=== PATIENT | male | born 1950 | race Caucasian/White ===

== ENCOUNTER 2017-02-08 08:49 | Inpatient (IN) | payer MEDICARE, OTHER ==
[2017-01-28 12:58] LABS: BASOPHILS 0.3 %; BASOPHILS ABSOLUTE 0.03 10/3/uL (0.0-0.16); EOSINOPHILS 1.1 %; EOSINOPHILS ABSOLUTE 0.12 10/3/uL (0.0-0.53); HEMATOCRIT 45.8 % (40.0-51.0); IMMATURE GRANULOCYTES 1.1 %; IMMATURE GRANULOCYTES ABSOLUTE 0.12 10/3/uL (0.0-0.11); LYMPHOCYTES 22.1 %; LYMPHOCYTES ABSOLUTE 2.38 10/3/uL (0.67-4.30); MEAN CORPUS HGB CONC 34.9 g/dL (32.0-36.0); MEAN CORPUSCULAR HEMOGLOB 32.5 pg (26.0-34.0); MEAN CORPUSCULAR VOLUME 93.1 fL (80-100); MEAN PLATELET VOLUME 10.2 fL (9.2-13.0); MONOCYTES 7.1 %; MONOCYTES ABSOLUTE 0.76 10/3/uL (0.21-1.20); NEUTROPHILS 68.3 %; NEUTROPHILS ABSOLUTE 7.34 10/3/uL (2.02-8.40); PLATELET COUNT 177 10/3/uL (150-400); RBC DISTRIBUTION WIDTH 13.5 % (12.0-16.0); RED CELL COUNT 4.92 10/6/uL (4.7-6.1); WHITE BLOOD CELLS 10.8 10/3/uL (4.5-10.5)
[2017-01-28 12:59] LABS: MANUAL DIFF NO %
[2017-01-28 13:04] LABS: PROTIME (NOT ORD) 13.3 SEC (12.0-14.5)
[2017-01-28 13:10] LABS: ALBUMIN 3.6 G/DL (3.5-5.0); ALKALINE PHOSPHATASE 94 U/L (45-117); CALCIUM, SERUM 9.4 MG/DL (8.5-10.4); CHLORIDE, SERUM 105 MMOL/L (96-112); CREATININE 1.08 MG/DL (0.70-1.30); GFR AFRICAN AMERICAN 81 ML/MIN (>=60); GFR NON AFRICAN AMERICAN 70 ML/MIN (>=60); GLOBULIN 3.6 G/DL (2.5-4.1); GLUCOSE, SERUM 102 MG/DL (60-99); POTASSIUM, SERUM 4.3 MMOL/L (3.5-5.3); SGOT(AST) 38 U/L (5-40); SGPT(ALT) 56 U/L (5-65); SODIUM, SERUM 143 MMOL/L (135-148); TOTAL BILIRUBIN 0.4 MG/DL (0-1.2); TOTAL PROTEIN 7.2 G/DL (6.0-8.5)
[2017-01-28 13:11] LABS: BUN (BLOOD UREA NITROGEN) 14 MG/DL (6-23); CO2 (CARBON DIOXIDE) 29 MMOL/L (24-34)
[2017-01-28 13:16] LABS: ASCORBIC ACID (UR NOT ORDER) NEG (NEG); BILIRUBIN, URINE NEGATIVE (NEG); KETONE, URINE NEGATIVE (NEG); LEUKOCYTE ESTERASE(NOT OR NEG (NEG); WBC (NOT ORDERED) (RFLEX) 2 (0-5)
[2017-01-28 13:17] LABS: B NATRIURETIC PEPTIDE (BNP) 42.8 PG/ML (< 100.0)
--- NOTE | ~2017-02-08 | OP ---
Record Of Operation [facility] [address] [place]. [address] NAME: JUAN FOSTER : 46 STATUS : ADM IN PAT#: [id number] AGE: 66 ADM/REG DATE : 02/08/17 MR#: [id number] REPORT SERV DATE: 02/08/17 DICTATED BY: PENG JOHN DATE: 02/08/17 REPORT STATUS : Draft TRANSCRIBED BY: DOC DATE: 02/08/17 DATE OF PROCEDURE: 02/08/2017 TAVR NOTE PROCEDURE: Right transfemoral transcatheter aortic valve replacement, implantation using 26 mm Thacker S3 valve. INDICATION FOR THE PROCEDURE: Mr. Juan Foster is a 66-year-old gentleman with severe aortic stenosis. He had bypass surgery in 2000. He has history of hypertension, hyperlipidemia, prior back surgery. His echocardiogram demonstrated hnxypncx-rf-[id number] low-gradient aortic stenosis with a valve area 0.8, peak gradient 40, mean gradient 20. Cardiac catheterization by Dr. Harris demonstrated a mean gradient 31, aortic valve area 1.2. His predicted mortality by the STS score was 2.8%, predicted morbidity mortality 20.3%, predicted mortality by the euro score is 4.6%. Both Dr. Ramírez and Dr. De Souza felt that he was a poor candidate for surgical aortic valve replacement. The entire [facility] valve team felt he was a better candidate for transcatheter aortic valve replacement. POSTOPERATIVE DIAGNOSES: Successful implantation of the Thacker 26 mm S3 valve via the right transfemoral approach. OPERATORS: Dr. De Souza, Dr. John, Dr. Harris, Dr. Ramírez, and Dr. Holt. OPERATIVE TECHNIQUE: The patient was prepped and draped in the usual sterile fashion. He received propofol anesthesia. He was not intubated. He did not have a Gray catheter. He did have a radial A-line as well as a right heart catheter via IJ approach. The patient was prepped and draped in the usual sterile fashion. The right and left groins were anesthetized with lidocaine 1% 12 mL. Access to both the left and right femoral arteries was easily obtained using the micropuncture technique that demonstrated access in the common femoral artery. 6-Bahraini sheaths were placed. A 6-Bahraini sheath was placed in the left femoral vein as well. The pacemaker was placed from the left femoral vein in the right ventricular apex. Excellent thresholds. A pigtail catheter was placed through the left femoral artery to allow valve positioning. Two ProGlide sutures were placed in the right femoral artery at the 10 o'clock and 2 o'clock position in the pre-close technique. The 6-Bahraini sheath was replaced. He received heparin IV. The J-wire was placed in the ascending aorta, that was changed out for a Lunderquist wire through a multipurpose catheter. We then placed Thacker sheath without difficulty. Again, heparin had been delivered, the activating clotting time was therapeutic. Record Of Operation [facility] [address] [place]. [address] NAME: JUAN FOSTER : 46 STATUS : ADM IN PAT#: [id number] AGE: 66 ADM/REG DATE : 02/08/17 MR#: [id number] REPORT SERV DATE: 02/08/17 DICTATED BY: PENG JOHN DATE: 02/08/17 REPORT STATUS : Draft TRANSCRIBED BY: DOC DATE: 02/08/17 We then placed an AL1 over that Lunderquist wire, then crossed the aortic valve with a straight wire without difficulty. With a straight wire in the ventricle, the extension K wire was placed, and simultaneous pressures were obtained in the ascending aorta and the left ventricle with two different pigtail catheters. We then placed the preformed Amplatz extra stiff wire in the left ventricle. We then delivered the valve. The valve was assembled in the abdominal aorta. We crossed the beaver aortic valve without difficulty. The pusher was pulled back. With rapid ventricular pacing, the valve was deployed. After valve deployment, the chest wall echo or thoracic aortogram demonstrated no aortic insufficiency. We then placed the pigtail catheter back in the left ventricle and repeated the pressure gradient between the left ventricle and the ascending aorta. Pullback pressures were obtained as well. We then removed the Thacker sheath, the ProGlide sutures were tightened. Completion aortic angiogram demonstrated no extravasation or significant stenosis at the access site. The left femoral artery sheath was removed, that site was closed with an Angio-Seal device. The left femoral vein with sheath was left in place. The total pacing time was 17 seconds. The actual time of valve deployment is 1421 hours. The cardiac output pre-deployment 3.1 L/minute, post-deployment 3.6 L/minute. The valve area pre-deployment was 1.2 cm2, postdeployment valve area is 2.4 cm2. The blood pressure pre-deployment was 121/67, mean 87, heart rate 75. Post-deployment blood pressure was 137/72, mean 96, heart rate 79. The gradient pre-deployment was 29 mmHg, mean 20 mmHg peak to peak. Postprocedure, there was no gradient across the aortic valve. Total contrast volume used was 95 mL. Total fluoro time was 13.6 minute. The estimated blood loss was less than 50 mL. The total radiation dose was 1029 mGy. The AI index was 48. In short, the patient underwent a right transfemoral transcatheter aortic valve replacement using a Thacker 26 mm valve. The gradient decreased from 29 mmHg mean to no gradient postprocedure. There was no AI by echocardiogram or by thoracic aortogram. The AI index was 48. The Thacker sheath was removed, using the pre-close technique, and the left femoral artery sheath was removed, that site was closed with Angio-Seal device. PLAN: Aspirin, clopidogrel, and warfarin q.8h. RODNEY/DOC Peng John, Record Of Operation [address] [address] NAME: JUAN FOSTER : 46 STATUS : ADM IN [facility]#: [id number] AGE: 66 ADM/REG DATE : 02/08/17 MR#: [id number] REPORT SERV DATE: 02/08/17 DICTATED BY: PENG JOHN DATE: 02/08/17 REPORT STATUS : Draft TRANSCRIBED BY: DOC DATE: 02/08/17 Mohinder / [id number] CC: Mohinder Gibson MAE D
--- NOTE | ~2017-02-08 | OP ---
Record Of Operation [facility] [address] [place]. [address] NAME: DAVID WESTFALL : 46 STATUS : ADM IN PAT#: [id number] AGE: 66 ADM/REG DATE : 02/08/17 MR#: [id number] REPORT SERV DATE: 02/08/17 DICTATED BY: YULY DE SOUZA DATE: 02/08/17 REPORT STATUS : Draft TRANSCRIBED BY: MODMarion DATE: 02/08/17 DATE OF PROCEDURE: 02/08/2017 PREOPERATIVE DIAGNOSES: 1. Aortic stenosis. 2. Acute on chronic diastolic heart failure. 3. Chronic systolic heart failure (ejection fraction 45%). 4. Coronary artery disease, status post previous coronary artery bypass grafting. 5. Hypertension. 6. Hypercholesterolemia. POSTOPERATIVE DIAGNOSES: 1. Aortic stenosis. 2. Acute on chronic diastolic heart failure. 3. Chronic systolic heart failure (ejection fraction 45%). 4. Coronary artery disease, status post previous coronary artery bypass grafting. 5. Hypertension. 6. Hypercholesterolemia. PROCEDURES PERFORMED: 1. TAVR, right transfemoral, 26 mm S3 pericardial valve (Tobi). 2. ProGlide closure of the right femoral artery x2. 3. Angio-Seal closure of the left femoral artery x1. 4. Right transfemoral venous temporary pacemaker placement. 5. Ascending aortography. 6. Right iliofemoral runoff aortography. 7. Transthoracic echocardiography. SURGEON: Dr. Yuly De Souza, Dr. Ramírez, Dr. John, Dr. Harris with Dr. Holt. HOUSE SUPERVISOR: Nile Pitts M.D., Ph.D, F.A.C.C. INDICATIONS: This is a 66-year-old gentleman, who underwent a coronary bypass grafting in 2000. He has had progressive dyspnea and fatigue. He was evaluated with recent echocardiography that demonstrated reduced aortic valve area of 0.83 centimeter squared. He had a low gradient across the valve and was felt to have low gradient aortic valve stenosis. Right ventricular function was moderately reduced. The patient underwent a cardiac catheterization, which demonstrated same ventricular function. Severe [place] coronary disease with a patent PEÑA graft and a jump of the second obtuse marginal graft. The patient had moderate stenosis with valve area 1.2 centimeter squared with a peak gradient 25 mmHg measured. We discussed possible TAVR procedure with him and his family, and after lengthy discussion of the operations, its indication and risks, they wished to proceed. It was felt to be an elevated risk for reoperative coronary artery bypass grafting with SDS- predicted mortality of greater than 3% I believe. FINDINGS AT OPERATION: Record Of Operation [facility] [place] [address] [address] [place]. [address] NAME: DAVID WESTFALL : 46 STATUS : ADM IN PAT#: [id number] AGE: 66 ADM/REG DATE : 02/08/17 MR#: [id number] REPORT SERV DATE: 02/08/17 DICTATED BY: YULY DE SOUZA DATE: 02/08/17 REPORT STATUS : Draft TRANSCRIBED BY: DOC DATE: 02/08/17 1. The total time of rapid ventricular pacing was 17 seconds. 2. The actual time of TAVR deployment was 1421. 3. Cardiac output predeployment was 3.1. Postdeployment was 3.6 L/minute. 4. The valve area predeployment was 1.24 centimeter squared. Postdeployment was 2.37 centimeter squared. 5. Preimplant aortic pressures: Systolic 121, diastolic 67, mean 87 mmHg. 6. Postimplant aortic pressures: Systolic 137, diastolic 72, mean 96 mmHg. 7. The preimplant AV gradient was 29 and peak gradient 20 mmHg. Postimplant AV gradient mean of 4 and peak of 0 mmHg. 8. The total volume contrast used was 95 mL. 9. Fluoro time was 13.6 minutes. 10.Estimated blood loss, less than 50 mL. 11.Total mGy used was 1029 mGy. 12.Aortic index was 48. 13.There is no aortic insufficiency seen on transthoracic echocardiography after valve deployment. 14.There was mild right femoral artery stenosis on right iliofemoral runoff angiography after ProGlide placement. It was felt to be mild and less than 20%. 15.There were pedal pulses bilaterally on transfer to the unit. PATHOLOGIC SPECIMENS: None. DESCRIPTION OF PROCEDURE: The patient was brought to the hybrid operating suite and laid in a supine position on the hybrid operating table. The patient's abdomen, groin, and legs were prepped with Hibiclens and ChloraPrep and draped with Ioban sterile sheets. Then, using a micropuncture technique, right femoral artery, left femoral artery, and left femoral vein were all accessed. The arterial sticks, we performed contrast angiography that confirmed placement of catheters. Then, each of these micropuncture catheters were exchanged for 6-Wolof introducer sheath. The left transfemoral temporary venous pacemaker catheter was then floated into the right ventricle under fluoroscopic guidance. Confirmatory placement by pacing thresholds was measured. Pigtail catheter and guidewire were advanced into the ascending aorta and into the right noncoronary sinuses to confirm deployment angles using contrast aortography. Once this was completed, a pigtail wire was placed into the right femoral artery and the 6- Wolof sheath removed. Two ProGlide closure devices were then placed in the right femoral artery. This straight wire was then advanced into the ascending aorta under fluoroscopic guidance. Then, a pigtail catheter advanced over the guidewire. Lunderquist wire was then advanced through the pigtail catheter into the ascending aorta. The TAVR sheath was then advanced into the descending thoracic aorta and the patient was anticoagulated with heparin. An AL1 catheter was advanced over the Lunderquist wire, which was removed. A soft straight wire was then used to cross the valve and the AL1 catheter advanced across the valve and exchanged for pigtail catheter. Simultaneous pressures in the ventricle and ascending aorta Record Of [place] [id number] [facility] [place]. [address] NAME: DAVID WESTFALL : 46 STATUS : ADM IN [facility]#: [id number] AGE: 66 ADM/REG DATE : 02/08/17 MR#: [id number] REPORT SERV DATE: 02/08/17 DICTATED BY: YULY DE SOUZA DATE: 02/08/17 REPORT STATUS : Draft TRANSCRIBED BY: MODL DATE: 02/08/17 were then measured. Next, the extra-stiff wire was then placed into the left ventricle and the pigtail catheter removed. The valve and delivery system were brought up to the field. Orientation of the valve was confirmed and the valve delivery system advanced into the descending thoracic aorta. The balloon was then backed onto the valve delivery system. We then advanced the valve delivery system with the valve across the aortic arch into the ascending aorta and across the valve, and positioning was confirmed with fluoro. Angles for deployment of the valve were then placed. The pusher assembly was then backed up into the ascending aorta. Temporary rapid ventricular pacing was performed. Contrast aortography confirmed positioning of the valve and the valve was deployed using the balloon. Once the valve was deployed, the balloon was deflated and the delivery system backed into the descending thoracic aorta. Contrast aortography was then performed through the pigtail catheter demonstrating no significant aortic insufficiency. Transthoracic echocardiography was then performed with Dr. Pitts, and this confirmed absence of significant aortic insufficiency. Then, the valve delivery system was brought out of the sheath. A pigtail catheter was passed up the extra-stiff wire and placed into the left ventricle across the valve. The wire was removed and simultaneous pressure recordings made of the ventricle and aorta measuring gradient. Then, the pigtail catheter was brought back into the descending thoracic aorta and out through the valve sheath. The sheath was then removed from the right femoral artery and the ProGlide closure devices fully deployed and secured. The pigtail catheter in the left femoral artery was then brought back down to the aortic bifurcation and contrast aortography performed with right iliofemoral runoff demonstrating good patency of the right femoral artery with mild area stenosis at deployment of the ProGlide catheters. Pedal pulses were present and it was elected to leave this mild stenosis alone. Then, the pigtail catheter was removed over a guidewire and Angio-Seal closure of the left femoral artery was performed. The temporary pacemaker through the left femoral vein was removed. The [place] catheter was likewise removed at the conclusion of the operation. The patient tolerated the procedure well. There were no complications. Sponge and needle counts were correct. DISPOSITION: The patient was taken to the intensive care unit in stable condition with pedal pulses present by Doppler. CAROL/DOC Yuly De Souza M.D. / [id number] Record Of [address] [address] NAME: DAVID WESTFALL : 46 STATUS : ADM IN [facility]#: [id number] AGE: 66 ADM/REG DATE : 02/08/17 MR#: [id number] REPORT SERV DATE: 02/08/17 DICTATED BY: YULY DE SOUZA DATE: 02/08/17 REPORT STATUS : Draft TRANSCRIBED BY: MODL DATE: 02/08/17 CC: Yuly De Souza M.D. CAROLYN Pitts M.D., Ph.D, F.A.C.C.
[~2017-02-08 08:49] MED LIST: ASAB PO; CRESTOR20 MG PO; FLOMAX4 PO; KLOR-CON M2020 MEQ PO; L40 PO; PCET PO; PROTONIX PO; VASOTEC10 PO; ZETIA PO; ZOL50 PO
[2017-02-08 15:18] LABS: HEMOGLOBIN 13.8 g/dL (13.6-17.8); PLATELET COUNT 147 10/3/uL (150-400)
[2017-02-08 15:19] LABS: HEMATOCRIT 39.1 % (40.0-51.0)
[2017-02-08 15:28] LABS: INTERNATIONAL NORMAL RATI 1.4 UNITS (-)
[2017-02-08 15:30] LABS: BUN (BLOOD UREA NITROGEN) 14 MG/DL (6-23); CALCIUM, SERUM 8.7 MG/DL (8.5-10.4); CHLORIDE, SERUM 109 MMOL/L (96-112); CREATININE 0.85 MG/DL (0.70-1.30); GFR AFRICAN AMERICAN 104 ML/MIN (>=60); GFR NON AFRICAN AMERICAN 90 ML/MIN (>=60); GLUCOSE, SERUM 95 MG/DL (60-99); POTASSIUM, SERUM 4.1 MMOL/L (3.5-5.3); SODIUM, SERUM 142 MMOL/L (135-148)
[2017-02-08 15:31] LABS: CO2 (CARBON DIOXIDE) 23 MMOL/L (24-34)
[2017-02-08 15:38] LABS: PROTIME (NOT ORD) 16.9 SEC (12.0-14.5)
[2017-02-08 15:39] LABS: PARTIAL THROMBO TIME > 150.0 SEC (22.5-37.2)
[2017-02-08 23:09] LABS: HEMATOCRIT 38.6 % (40.0-51.0); HEMOGLOBIN 13.4 g/dL (13.6-17.8)
[2017-02-08 23:20] LABS: BUN (BLOOD UREA NITROGEN) 15 MG/DL (6-23); CALCIUM, SERUM 8.2 MG/DL (8.5-10.4); CHLORIDE, SERUM 109 MMOL/L (96-112); CO2 (CARBON DIOXIDE) 24 MMOL/L (24-34); CREATININE 0.86 MG/DL (0.70-1.30); GFR AFRICAN AMERICAN 103 ML/MIN (>=60); GFR NON AFRICAN AMERICAN 89 ML/MIN (>=60); GLUCOSE, SERUM 103 MG/DL (60-99); SODIUM, SERUM 146 MMOL/L (135-148)
[2017-02-09 03:27] LABS: BASOPHILS 0.2 %; BASOPHILS ABSOLUTE 0.02 10/3/uL (0.0-0.16); EOSINOPHILS 0.8 %; EOSINOPHILS ABSOLUTE 0.08 10/3/uL (0.0-0.53); HEMATOCRIT 38.4 % (40.0-51.0); HEMOGLOBIN 13.3 g/dL (13.6-17.8); IMMATURE GRANULOCYTES 0.5 %; IMMATURE GRANULOCYTES ABSOLUTE 0.05 10/3/uL (0.0-0.11); LYMPHOCYTES 11.4 %; LYMPHOCYTES ABSOLUTE 1.19 10/3/uL (0.67-4.30); MEAN CORPUS HGB CONC 34.6 g/dL (32.0-36.0); MEAN CORPUSCULAR HEMOGLOB 32.1 pg (26.0-34.0); MEAN CORPUSCULAR VOLUME 92.8 fL (80-100); MEAN PLATELET VOLUME 9.5 fL (9.2-13.0); MONOCYTES 8.2 %; MONOCYTES ABSOLUTE 0.85 10/3/uL (0.21-1.20); NEUTROPHILS 78.9 %; NEUTROPHILS ABSOLUTE 8.21 10/3/uL (2.02-8.40); PLATELET COUNT 112 10/3/uL (150-400); RBC DISTRIBUTION WIDTH 13.2 % (12.0-16.0); RED CELL COUNT 4.14 10/6/uL (4.7-6.1); WHITE BLOOD CELLS 10.4 10/3/uL (4.5-10.5)
[2017-02-09 03:28] LABS: MANUAL DIFF NO %
[2017-02-09 03:37] LABS: BUN (BLOOD UREA NITROGEN) 15 MG/DL (6-23); CALCIUM, SERUM 8.3 MG/DL (8.5-10.4); CHLORIDE, SERUM 109 MMOL/L (96-112); CO2 (CARBON DIOXIDE) 26 MMOL/L (24-34); CREATININE 0.92 MG/DL (0.70-1.30); GFR AFRICAN AMERICAN 99 ML/MIN (>=60); GFR NON AFRICAN AMERICAN 85 ML/MIN (>=60); GLUCOSE, SERUM 136 MG/DL (60-99); POTASSIUM, SERUM 4.1 MMOL/L (3.5-5.3); SODIUM, SERUM 144 MMOL/L (135-148)
[2017-02-09] MEDS ORDERED: PLAVIX PO (16:06)
== END 2017-02-09 16:21 | disposition home or self-care (01) | DRG 266 ==
LOC: SDC/OF 08:49 → CVICU 14:25
PROVIDERS: Thoracic Surgery (Cardiothoracic Vascular Surgery)
PROC: 02RF38Z Replacement of Aortic Valve with Zooplastic Tissue, Percutaneous Approach (ICD-10-PCS; principal; 2017-02-08 14:30)
PROC: B246YZZ Ultrasonography of Right and Left Heart using Other Contrast (ICD-10-PCS; 2017-02-08 14:30)
DX: I35.0 Nonrheumatic aortic (valve) stenosis (principal); I50.33 Acute on chronic diastolic (congestive) heart failure; Z00.6 Encounter for examination for normal comparison and control in clinical research program; I25.10 Atherosclerotic heart disease of native coronary artery without angina pectoris; E78.00 Pure hypercholesterolemia, unspecified; Z79.899 Other long term (current) drug therapy; Z98.890 Other specified postprocedural states; I11.0 Hypertensive heart disease with heart failure; R00.1 Bradycardia, unspecified
CPT/HCPCS: 36415; 36600; 71010; 71020; 80048; 80053; 81001; 82330; 82803; 82947; 82962; 83036; 83735; 83880; 84132; 84295; 85014; 85018; 85025; 85049; 85347; 85610; 85730; 86850; 86900; 86901; 86920; 87641; 93005; 93306; 93312; 93320; 93325; A9270-GY; C1751; C1769; C1894; J0690; J2250; J2370; J3010; J3475